=== PATIENT | male | born 1980 | race Caucasian/White ===

== ENCOUNTER 2021-07-08 10:59 | Emergency (ER) | payer OTHER ==
[~2021-07-08] VITALS: Ht 180.3 cm; Wt 102.1 kg
--- NOTE | 2021-07-08 11:20 | NUR ---
RECIVED PT 40 YRS MALE PT FROM HOME C/O LT FLANCK ABDOMINALE PAIN STRETED THIS MORNING
[2021-07-08] MEDS ORDERED: KETOROLAC TROMETHAMINE INJ 30 MG/ML VIAL IV ONE ×2 (11:30→13:30)
[2021-07-08] MEDS ORDERED: IV NS 0.9% 1,000 ML BAG IV ONE (11:30)
[2021-07-08] MEDS ORDERED: MORPHINE SULFATE INJ 2 MG/ML DISP.SYRIN IV ONE ×2 (11:30→12:30)
[2021-07-08] MEDS ORDERED: ONDANSETRON HCL/PF 4 MG/2 ML VIAL IVP ONE (11:30)
[2021-07-08 11:35] LABS: BASOPHILS # (AUTO) 0.1 K/uL (0.0-0.2); BASOPHILS % (AUTO) 1.4 % (0.0-2.0); HEMATOCRIT 48 % (39-51); HEMOGLOBIN 16.5 g/dL (13.5-17.5); LYMPHOCYTES # (AUTO) 1.9 K/uL (0.8-4.8); LYMPHOCYTES % (AUTO) 24.9 % (20.0-44.0); MEAN CORPUSCULAR HGB CONC 35 g/dl (31.0-36.0); MEAN CORPUSCULAR VOLUME 91 fL (80-96); MONOCYTES # (AUTO) 0.7 K/uL (0.1-1.30); NEUTROPHILS # (AUTO) 4.7 K/uL (1.8-8.9); NEUTROPHILS % (AUTO) 61.7 % (43.0-81.0); PLATELET COUNT (AUTO) 236 K/uL (150-450); RED BLOOD CELL COUNT(AUTO) 5.26 MIL/uL (4.5-6.0); WHITE BLOOD COUNT (AUTO) 7.6 K/uL (4.3-11.0)
--- NOTE | 2021-07-08 11:45 | NUR ---
TO CT SCAN OF ABDOMIN VIA MEJIA PAIN REDUCED TO 5/10
[2021-07-08 11:52] LABS: ALBUMIN 3.7 g/dL (3.4-5.0); BILIRUBIN,DIRECT 0.1 mg/dL (0.0-0.2); BILIRUBIN,TOTAL 0.6 mg/dL (0.2-1.0); CALCIUM, SERUM 8.7 mg/dL (8.5-10.1); CREATININE 1.3 mg/dL (0.6-1.3); POTASSIUM 4.1 mmol/L (3.5-5.1); TOTAL PROTEIN, SERUM 7.1 g/dL (6.4-8.2)
--- NOTE | 2021-07-08 12:03 | NUR ---
RESTING AND COMFORTABLE
--- NOTE | 2021-07-08 12:35 | NUR ---
castillo freely yellow coudy color UA AND UC SEND TO LAB
--- NOTE | 2021-07-08 13:00 | NUR ---
C/O PAIN CAME BACK TO 10/21 DR.BRADY LIVINGSTON ORDER GIVEN
--- NOTE | 2021-07-08 13:35 | NUR ---
WATING FOR UA RESULT
[2021-07-08 13:40] LABS: BILIRUBIN,URINE NEGATIVE (NEGATIVE); COLOR,URINE YELLOW (YELLOW); LEUKOCYTE ESTERASE ,URINE NEGATIVE (NEGATIVE); NITRITE, URINE NEGATIVE (NEGATIVE); PH,URINE 8.5 (5.0-8.0); PROTEIN,URINE TRACE mg/dl (NEGATIVE); UGLUCOSE NEGATIVE (NEGATIVE); UROBILINOGEN,URINE 0.2 EU/dL (0.2)
[2021-07-08] MEDS ORDERED: TAMS-12 PO (13:55)
[2021-07-08] MEDS ORDERED: HYDR-4303 PO (13:55)
--- NOTE | 2021-07-08 14:00 | NUR ---
TOLORATED PO INTACK NO N/V NOTED PAIN REDUCED 2/10 IMPROVING
[2021-07-08 14:06] LABS: BACTERIA,URINE Few /HPF (None Seen); SQUAMOUS EPITHELIAL CELL,UR Few /HPF (None Seen); WBC,URINE 0-2 /HPF (0-3)
[2021-07-08 14:07] LABS: URINE AMORPHOUS PHOSPHATES Few /HPF (None Seen)
--- NOTE | 2021-07-08 14:30 | NUR ---
D/C INSTRACTION GIVEN TO PT FULLY AND VERBLIZED UNDERSTOOD D/C HOME WITH RX AND FALLOW UP CARE
[2021-07-08 14:46] VITALS: BP 132/83
== END 2021-07-08 14:47 | disposition home or self-care (01) ==
LOC: ER 11:03
DX: N20.1 Calculus of ureter (principal)
CPT/HCPCS: 36415; 74176; 80048; 80076; 81001; 83690; 85025; 96361; 96374; 96375; 96376; 99285; J1170 ×2; J1885 ×2; J2405; J7030